=== PATIENT | female | born 1940 | race Caucasian/White ===

== ENCOUNTER 2016-07-26 08:52 | Outpatient (CLI) | payer MEDICARE, OTHER | END 2016-07-26 08:53 | disposition home or self-care (01) | DX: I10 Essential (primary) hypertension (principal); R73.01 Impaired fasting glucose ==

== ENCOUNTER 2017-01-31 08:02 | Outpatient (CLI) | payer MEDICARE, OTHER ==
[2017-01-31 13:48] LABS: BUN - BLOOD UREA NITROGEN 12 mg/dL (6-20); CARBON DIOXIDE - CO2 27 mmol/L (21-32); CHLORIDE 103 mmol/L (101-111); CHOL/HDL RATIO 4.5 (<4.4); CHOLESTEROL 247 mg/dL; CREATININE 0.6 mg/dL (0.4-1.0); GFR - MDRD 97 (>89); GLUCOSE 103 mg/dL (70-100); HDL CHOLESTEROL 55 mg/dL; POTASSIUM 4.2 mmol/L (3.5-5.0); SODIUM 138 mmol/L (135-145); TRIGLYCERIDES 125 mg/dL; VLDL CHOLESTEROL 25 mg/dL
[2017-01-31 14:00] LABS: HEMOGLOBIN A1C 0.6 g/dL
== END 2017-01-31 08:03 | disposition home or self-care (01) ==
LOC: LAB.N 08:02
PROVIDERS: ATTEND Internal Medicine
DX: I10 Essential (primary) hypertension (principal); R73.01 Impaired fasting glucose; E78.00 Pure hypercholesterolemia, unspecified
CPT/HCPCS: 36415; 80051; 80061; 82565; 82947; 83036; 84520

== ENCOUNTER 2017-10-24 11:50 | Outpatient (CLI) | payer MEDICARE, OTHER ==
--- NOTE | 2017-10-25 20:08 | Mammography Report ---
DIGITAL SCREENING MAMMOGRAM: 10/24/2017 CLINICAL INDICATION: A 77-year-old for screening. TECHNIQUE: Routine CC and MLO projections were obtained of the breasts. COMPARISON: Reports of previous mammograms, most recently 03/01/1997. Films have been purged. FINDINGS: The breasts demonstrate scattered fibroglandular densities bilaterally. A few punctate, typically benign calcifications are present. No suspicious masses, clustered microcalcifications, or regions of architectural distortion are identified. IMPRESSION: BENIGN FINDINGS. RECOMMENDATION: Routine annual screening unless otherwise clinically indicated. BIRADS CATEGORY - 2 benign findings. STANDARD QUALIFYING STATEMENTS: 1. This examination was reviewed with the aid of Computer-Aided Detection (CAD). 2. A negative or benign imaging report should not delay biopsy if clinically suspicious findings are present. Consider surgical consultation if warranted. More than 5% of cancers are not identified by imaging. 3. Dense breasts may obscure an underlying neoplasm. TD: 10/25/2017 20:07
== END 2017-10-24 11:51 | disposition home or self-care (01) ==
LOC: DI.N 11:50
PROVIDERS: ATTEND Internal Medicine
DX: Z12.31 Encounter for screening mammogram for malignant neoplasm of breast (principal)
CPT/HCPCS: 77067

== ENCOUNTER 2017-10-24 12:20 | Outpatient (CLI) | payer MEDICARE, OTHER ==
--- NOTE | 2017-10-24 13:48 | XRAY Report ---
TWO VIEW CHEST: 10/24/2017 CLINICAL INDICATION: COPD. FINDINGS: Frontal and lateral views of the chest demonstrate a normal cardiac silhouette. A moderate hiatal hernia is present. The lungs are hyperinflated, compatible with COPD, with mild fibrotic changes. No focal infiltrate, effusion, or pneumothorax is present. IMPRESSION: COPD AND MILD FIBROSIS. MODERATE HIATAL HERNIA. TD: 10/24/2017 13:47
== END 2017-10-24 23:59 | disposition home or self-care (01) ==
LOC: DI.N 12:20
PROVIDERS: ATTEND Internal Medicine
DX: J44.9 Chronic obstructive pulmonary disease, unspecified (principal); J84.10 Pulmonary fibrosis, unspecified
CPT/HCPCS: 71046

== ENCOUNTER 2017-11-15 15:06 | Outpatient (CLI) | payer MEDICARE, OTHER ==
--- NOTE | 2017-11-15 17:51 | Ultrasound Report ---
COMPLETE ABDOMINAL ULTRASOUND: 11/15/2017 CLINICAL INDICATION: Right upper quadrant pain. FINDINGS: The liver measures 17.4 cm. Hepatic echogenicity is increased, compatible with fatty infiltration. No focal parenchymal lesion or intrahepatic biliary dilatation is present. The common bile duct measures 3 mm. The gallbladder is unremarkable. The pancreas is obscured by bowel gas. The kidneys are normal, with the right measuring 10.6 cm, and the left measuring 10.5 cm. The spleen measures 6.5 cm, and demonstrates changes of old granulomatous disease. The abdominal aorta is normal in caliber. The inferior vena cava is unremarkable. No free fluid is present. IMPRESSION: FATTY INFILTRATION OF THE LIVER. NO EVIDENCE OF CHOLELITHIASIS OR BILIARY OBSTRUCTION. TD: 11/15/2017 16:07
== END 2017-11-15 15:07 | disposition home or self-care (01) ==
LOC: DI 15:06
PROVIDERS: ATTEND Internal Medicine
DX: R10.11 Right upper quadrant pain (principal); K76.0 Fatty (change of) liver, not elsewhere classified
CPT/HCPCS: 76700

== ENCOUNTER 2019-09-09 06:53 | Outpatient (CLI) | payer MEDICARE, OTHER ==
--- NOTE | 2019-09-09 16:44 | Ultrasound Report ---
Reason: RUQ AND LUQ PAIN Procedure Date: 09/09/2019 Accession Number: [id number] / [id number] Procedure: US - Abdomen Complete CPT Code: Final Report FULL RESULT: EXAM: ABDOMEN ULTRASOUND EXAM DATE: 09/09/2019 07:45 AM. CLINICAL HISTORY: RUQ AND LUQ PAIN. COMPARISON: ABDOMEN COMPLETE 11/15/2017 3:29 PM. TECHNIQUE: Real-time scanning was performed with static images obtained. FINDINGS: Liver: Mildly inhomogeneous, increased echogenicity, suggesting diffuse fatty infiltration.Probable focal fatty sparing abutting the gallbladder fossa. Otherwise no focal lesion. Liver measures 18.2 cm craniocaudally, previously measured at 17.4 cm. Main portal vein flow: Hepatopetal. Gallbladder: Gallbladder wall thickness is normal.No gallstones.Sonographic Garg sign is absent, per technologist's notes. Biliary System: Common bile duct measures 3 mm. No intrahepatic ductal dilatation. Pancreas: Visualized portion is unremarkable. Kidneys: Right: 11.0 cm longitudinally. Normal echotexture.No hydronephrosis.No contour-deforming mass.No calculus. Left: 10.6 cm longitudinally. Normal echotexture.No hydronephrosis.No contour-deforming mass.No calculus. Spleen: 9.7 cm (193 cc). Double scattered echogenic foci as before. Aorta and Inferior Vena Cava: Unremarkable. Other: No ascites. IMPRESSION: 1. Mildly enlarged, fatty liver. 2. No cholelithiasis or supporting ultrasound evidence of cholecystitis. 3. Common bile duct is normal caliber. 4. Probable calcified splenic granulomata as before. RADIA
== END 2019-09-09 06:54 | disposition home or self-care (01) ==
LOC: DI 06:53
PROVIDERS: ATTEND Internal Medicine
DX: R10.11 Right upper quadrant pain (principal); R10.12 Left upper quadrant pain; K76.0 Fatty (change of) liver, not elsewhere classified
CPT/HCPCS: 76700

== ENCOUNTER 2019-09-14 13:49 | Outpatient (CLI) | payer MEDICARE, OTHER ==
[2019-09-14] MEDS ORDERED: IOVERSOL 320 100 ML VIAL IVP ONE ×2 (14:07→15:25)
[2019-09-14] MEDS ORDERED: IOVERSOL 320 50 ML VIAL ONE (14:07)
[2019-09-14 14:21] LABS: CREATININE 0.5 mg/dL (0.4-1.0)
[2019-09-14] MEDS ORDERED: IOVERSOL 320 50 ML VIAL PO ONE (15:25)
--- NOTE | 2019-09-15 15:33 | CT Report ---
Reason: ABD PAIN Procedure Date: 09/14/2019 Accession Number: [id number] / [id number] Procedure: CT - Abdomen/Pelvis W CPT Code: Final Report FULL RESULT: EXAM: CT ABDOMEN AND PELVIS EXAM DATE: 09/14/2019 03:24 PM. CLINICAL HISTORY: Lower abdominal pain for 1 month. COMPARISONS: ABDOMEN COMPLETE 09/09/2019 6:59 AM. TECHNIQUE: Routine helical CT imaging was performed through the abdomen and pelvis. IV contrast: 100 cc of Optiray 320. Enteric contrast: Positive. Reconstructions: Coronal and sagittal. In accordance with CT protocol optimization, one or more of the following dose reduction techniques were utilized for this exam: automated exposure control, adjustment of mA and/or KV based on patient size, or use of iterative reconstructive technique. FINDINGS: Lung Bases: Heart size normal. Large hiatal hernia containing nearly the entire stomach. Minimal basilar scar/atelectasis. Liver: Mild fatty liver. No hepatic lesions. Gallbladder/Bile Ducts: Unremarkable. Spleen: Normal. Pancreas: Bilateral adrenal gland nodularity and thickening. Adrenal Glands: Normal. Kidneys: Normal. No masses or hydronephrosis. Peritoneal Cavity/Bowel: Mild thickening of the descending and transverse duodenum. Otherwise no other small bowel wall thickening or evidence for obstruction. No free air. Small volume of stool is seen in the colon. Numerous diverticula are seen, largely in the descending and sigmoid colon. No significant thickening. Along the distal sigmoid colon there may be mild edema along the margins of several diverticula. No pericolonic abscess or free air. Appendix is normal. No enlarged mesenteric or retroperitoneal lymph nodes. Pelvic Organs: Urinary bladder is mild to moderately distended and unremarkable. Uterus is absent. No pelvic adenopathy. No pelvic free fluid. Fatty left inguinal hernia. Vasculature: Vascular calcifications. No aneurysm. Mesenteric vasculature is patent. Bones: Degenerative changes lower thoracic and lumbar spine. Grade 1 anterolisthesis of L4 on L5. Degenerative changes of both hip joints. Partly included has diffuse irregular sclerosis of fatigue Vertebral body of uncertain significance. No other focal areas of sclerosis are seen. Other: None. IMPRESSION: 1. Normal appendix. 2. Mild thickening of descending and transverse duodenum which may be due to focal duodenitis. 3. Slight edema and thickening suspected along the mid distal sigmoid colon which may represent low-grade uncomplicated diverticulitis possibly chronic. No pericolonic abscess or free air. 4. Extensive colonic diverticulosis. 5. Large hiatal hernia. 6. Incompletely included is diffuse sclerosis of the T11 vertebral body, uncertain significance. Initial assessment with CT scan of the thoracic spine is recommended. No other areas of sclerosis are identified. RADIA
== END 2019-09-14 13:50 | disposition home or self-care (01) ==
LOC: DI 13:49
PROVIDERS: ATTEND Internal Medicine
DX: R10.9 Unspecified abdominal pain (principal); K63.89 Other specified diseases of intestine; K44.9 Diaphragmatic hernia without obstruction or gangrene; K57.30 Diverticulosis of large intestine without perforation or abscess without bleeding; E78.00 Pure hypercholesterolemia, unspecified; I10 Essential (primary) hypertension; Z79.899 Other long term (current) drug therapy
CPT/HCPCS: 36415; 74177; 82565; 84520; Q9967

== ENCOUNTER 2019-09-24 12:16 | Outpatient (CLI) | payer MEDICARE, OTHER ==
--- NOTE | 2019-09-26 09:50 | Mammography Report ---
Reason: ROUTINE MAMMO Procedure Date: 09/24/2019 Accession Number: [id number] / [id number] Procedure: NICKY - Screening Mammo w/Sp CPT Code: Final Report FULL RESULT: EXAM: Screening Mammo w/Sp DATE: 09/24/2019 12:47 PM CLINICAL HISTORY: Routine screening TECHNIQUE: (B) - Bilateral CC and MLO views were obtained. COMPARISON: 10/24/2017 PARENCHYMAL PATTERN: (A) - The breasts demonstrate scattered fibroglandular densities bilaterally. FINDINGS: No interval change. There are no suspicious masses, calcifications, or areas of distortion. IMPRESSION: Negative examination. BI-RADS category 1. RECOMMENDATION: (ANNUAL) - Recommend routine annual screening mammography. BI-RADS CATEGORY: (1) - Negative. STANDARD QUALIFYING STATEMENTS: 1. This examination was not reviewed with the aid of Computer-Aided Detection (CAD). 2. A negative or benign imaging report should not preclude biopsy if clinically suspicious findings are present. 3. Dense breasts may obscure an underlying neoplasm. 4. This examination was reviewed with the aid of 3D breast imaging (tomosynthesis).
== END 2019-09-24 12:17 | disposition home or self-care (01) ==
LOC: DI 12:16
PROVIDERS: ATTEND Internal Medicine
DX: Z12.31 Encounter for screening mammogram for malignant neoplasm of breast (principal)
CPT/HCPCS: 77063; 77067

== ENCOUNTER 2021-07-27 11:13 | Outpatient (CLI) | payer MEDICARE, OTHER ==
--- NOTE | 2021-07-27 12:23 | XRAY Report ---
PROCEDURE: Chest 2 View X-Ray INDICATIONS: COUGH TECHNIQUE: 2 view(s) of the chest. COMPARISON: None. FINDINGS: Surgical changes and devices: None. Lungs and pleura: No pleural effusions or pneumothorax. Lungs are clear. Mediastinum: Mediastinal contours are normal. Heart size is normal. Bones and chest wall: No suspicious bony abnormalities. Soft tissues appear unremarkable. There is suggestion of a large hiatal hernia. IMPRESSION: No acute cardiopulmonary pathology. Suggestion of large hiatal hernia. Reviewed by: Jason Gallegos MD on 07/27/2021 12:22 PM PST Approved by: Jason Gallegos MD on 07/27/2021 12:22 PM PST Station ID: [id number]
== END 2021-07-27 11:14 | disposition home or self-care (01) ==
LOC: DI 11:13
PROVIDERS: ATTEND Internal Medicine
DX: R05.9 Cough, unspecified (principal)

== ENCOUNTER 2021-11-27 12:38 | Outpatient (CLI) | payer MEDICARE, OTHER ==
--- NOTE | 2021-11-27 14:50 | DEXA Report ---
PROCEDURE: Dexa Spine and/or Hip INDICATIONS: POSTMENOPAUSAL TECHNIQUE: Dual energy x-ray absorptiometry (DXA) was performed on a [employer] System. Regions measur ed are the AP Spine, femoral neck, and if needed forearm. COMPARISON: None. FINDINGS: Lumbar Spine: Bone Mineral Density 0.969 g/cm/cm,T score -1.8 Left Hip: Bone Mineral Density 0.754 g/cm/cm,T score -2.0 Left Femoral Neck: Bone Mineral Density 0.747 g/cm/cm, T score -2.1, (T score greater or equal to -1.0: NORMAL) (T score from -1.1 to -2.4: OSTEOPENIA) (T score less than or equal to -2.5 to: OSTEOPOROSIS) Impression: Osteopenia of the left hip and lumbar spine. Patients with diagnosis of osteoporosis or osteopenia should have regular bone mineral density assess ment. For those eligible for Medicare, routine testing is allowed once every 2 years. Testing frequ ency can be increased for patients who have rapidly progressing disease or for those who are receivin g medical therapy to restore bone mass. Reviewed by: Holly Fragoso MD on 11/27/2021 2:48 PM PDT Approved by: Holly Fragoso MD on 11/27/2021 2:48 PM PDT Station ID: [id number]
== END 2021-11-27 12:39 | disposition home or self-care (01) ==
LOC: DI 12:38
PROVIDERS: ATTEND Physician Assistant
DX: M85.89 Other specified disorders of bone density and structure, multiple sites (principal)